=== PATIENT | female | born 1965 | race Caucasian/White ===

== ENCOUNTER 2018-04-07 12:34 | Emergency (ER) | payer OTHER ==
[2018-04-07 14:48] LABS: KETONE, URINE AUTO RFX NEGATIVE (NEGATIVE); LEUKOCYTE ESTERASE UR AUTO RFX NEGATIVE (NEGATIVE); MUCUS, URINE RFX SMALL (NEGATIVE); NITRITE, URINE AUTO RFX NEGATIVE (NEGATIVE); RBC, URINE AUTO RFX 0 /HPF (0-3); SPECIFIC GRAVITY UR AUTO RFX 1.018 (1.002-1.035); SQUAM EPITHELIAL CELL UR AURFX 1 /HPF (0-6); WBC, URINE AUTO RFX 0 /HPF (0-3)
[2018-04-07 14:52] LABS: BASO % 0.4 % (0.0-1.0); EOS # 0.1 10^3/uL (0.0-0.50); EOS % 1.2 % (0.0-3.0); HEMATOCRIT 44.1 % (36.0-47.0); HEMOGLOBIN 14.6 g/dl (12.0-15.5); IMMATURE GRANULOCYTE % 0.4 % (0-3.0); LYMPH # 3.1 10^3/uL (1.5-4.5); LYMPH % 27.6 % (24.0-44.0); MEAN CORPUSCULAR HEMOGLOBIN 29.4 pg (27.0-33.0); MEAN CORPUSCULAR HGB CONC 33.1 g/dl (32.0-36.5); MEAN CORPUSCULAR VOLUME 88.9 fl (80.0-96.0); MONO # 0.8 10^3/uL (0.0-0.8); MONO % 7.2 % (0.0-5.0); NEUTROPHILS # 7.2 10^3/uL (1.8-7.7); NEUTROPHILS % 63.2 % (36.0-66.0); PLATELET COUNT, AUTOMATED 232 10^3/uL (150-450); RED BLOOD COUNT 4.96 10^6/uL (4.00-5.40); RED CELL DISTRIBUTION WIDTH 13.5 % (11.5-14.5); WHITE BLOOD COUNT 11.3 10^3/uL (4.0-10.0)
[2018-04-07 15:21] LABS: ALBUMIN 3.6 GM/DL (3.2-5.2); ALBUMIN/GLOBULIN RATIO 0.88 (1.00-1.93); ALKALINE PHOSPHATASE 140 U/L (45-117); ALT/SGPT 33 U/L (12-78); ANION GAP 6 MEQ/L (8-16); AST/SGOT 24 U/L (7-37); BILIRUBIN,DIRECT < 0.1 MG/DL (0.0-0.2); BILIRUBIN,TOTAL 0.3 MG/DL (0.2-1.0); BLOOD UREA NITROGEN 17 MG/DL (7-18); CALCIUM LEVEL 9.2 MG/DL (8.5-10.1); CARBON DIOXIDE LEVEL 31 MEQ/L (21-32); CHLORIDE LEVEL 102 MEQ/L (98-107); CREATININE FOR GFR 0.75 MG/DL (0.55-1.30); GLOMERULAR FILTRATION RATE > 60.0 (>51); GLUCOSE, FASTING 93 MG/DL (70-100); LIPASE 149 U/L (73-393); POTASSIUM SERUM 3.9 MEQ/L (3.5-5.1); SODIUM LEVEL 139 MEQ/L (136-145); TOTAL PROTEIN 7.7 GM/DL (6.4-8.2)
[2018-04-07] MEDS: ONDANSETRON 4MG/2ML VIAL (J2405) IV (15:26)
[2018-04-07] MEDS: MORPHINE 4 MG/ML 1ML VIAL/SYRINGE (J2270) IV (15:33)
[2018-04-07] MEDS: NS 1,000 ML IV (15:33)
[2018-04-07] MEDS ORDERED: ISOVUE-370 76% 100ML VIAL (Q9967) As Ordered (15:36)
== END 2018-04-07 17:36 | disposition home or self-care (01) ==
LOC: M ED 12:34
DX: K57.32 Diverticulitis of large intestine without perforation or abscess without bleeding (principal); I10 Essential (primary) hypertension; K21.9 Gastro-esophageal reflux disease without esophagitis; F41.9 Anxiety disorder, unspecified; F32.9 Major depressive disorder, single episode, unspecified; Z72.0 Tobacco use; Z79.899 Other long term (current) drug therapy
CPT/HCPCS: J2270

== ENCOUNTER 2018-06-16 08:59 | Day surgery (SDC) | payer OTHER ==
[2018-06-16] MEDS: NS 1,000 ML IV (09:13)
[2018-06-16] MEDS ORDERED: MIDAZOLAM INJ 2 MG/2 ML VIAL (J2250) As Ordered (09:41)
[2018-06-16] MEDS ORDERED: PROPOFOL 200 MG/20 ML VIAL As Ordered (09:42)
[2018-06-16] MEDS ORDERED: LIDOCAINE 2% INJ 100 MG/5 ML SDV (FOR ANES.) As Ordered (09:42)
[2018-06-16] MEDS ORDERED: fentaNYL 100 MCG/2 ML INJECTION (J3010) As Ordered (09:44)
[2018-06-16] MEDS ORDERED: GLYCOPYRROLATE INJ 0.2 MG/ML 2 ML VIAL As Ordered (09:44)
== END 2018-06-16 10:50 | disposition home or self-care (01) ==
LOC: M OPP 08:59
DX: Z12.11 Encounter for screening for malignant neoplasm of colon (principal); K57.32 Diverticulitis of large intestine without perforation or abscess without bleeding; K58.9 Irritable bowel syndrome, unspecified; D12.4 Benign neoplasm of descending colon; D12.3 Benign neoplasm of transverse colon; K57.30 Diverticulosis of large intestine without perforation or abscess without bleeding; R10.84 Generalized abdominal pain; K44.9 Diaphragmatic hernia without obstruction or gangrene; I10 Essential (primary) hypertension; K21.9 Gastro-esophageal reflux disease without esophagitis; R12 Heartburn; F41.9 Anxiety disorder, unspecified; F32.9 Major depressive disorder, single episode, unspecified; E66.01 Morbid (severe) obesity due to excess calories; R06.02 Shortness of breath; R05 Cough; F17.210 Nicotine dependence, cigarettes, uncomplicated; Z79.899 Other long term (current) drug therapy
CPT/HCPCS: 45385

== ENCOUNTER → 2018-07-11 | Outpatient (CLI) | payer OTHER ==
[2018-07-11 12:31] LABS: HEMATOCRIT 46.8 % (36.0-47.0); HEMOGLOBIN 15.5 g/dl (12.0-15.5); MEAN CORPUSCULAR HEMOGLOBIN 29.5 pg (27.0-33.0); MEAN CORPUSCULAR HGB CONC 33.1 g/dl (32.0-36.5); PLATELET COUNT, AUTOMATED 240 10^3/uL (150-450); RED BLOOD COUNT 5.26 10^6/uL (4.00-5.40); RED CELL DISTRIBUTION WIDTH 13.4 % (11.5-14.5); WHITE BLOOD COUNT 8.8 10^3/uL (4.0-10.0)
[2018-07-11 12:44] LABS: ALBUMIN 4.2 GM/DL (3.2-5.2); ALBUMIN/GLOBULIN RATIO 1.05 (1.00-1.93); ALKALINE PHOSPHATASE 142 U/L (45-117); ALT/SGPT 30 U/L (12-78); ANION GAP 7 MEQ/L (8-16); AST/SGOT 20 U/L (7-37); BILIRUBIN,TOTAL 0.6 MG/DL (0.2-1.0); BLOOD UREA NITROGEN 14 MG/DL (7-18); CALCIUM LEVEL 9.4 MG/DL (8.5-10.1); CARBON DIOXIDE LEVEL 32 MEQ/L (21-32); CHLORIDE LEVEL 99 MEQ/L (98-107); CREATININE FOR GFR 0.76 MG/DL (0.55-1.30); GLOMERULAR FILTRATION RATE > 60.0 (>51); GLUCOSE, FASTING 98 MG/DL (70-100); SODIUM LEVEL 138 MEQ/L (136-145); TOTAL PROTEIN 8.2 GM/DL (6.4-8.2)
== END ==
LOC: M LAB 11:27
DX: K58.0 Irritable bowel syndrome with diarrhea (principal); K57.32 Diverticulitis of large intestine without perforation or abscess without bleeding
CPT/HCPCS: 80053

== ENCOUNTER → 2018-07-20 | Outpatient (CLI) | payer OTHER ==
[~2018-07-20] MED LIST: GASTROGRAFIN SOLUTION 30ML (Q9963) As Ordered; ISOVUE-370 76% 100ML VIAL (Q9967) As Ordered
== END ==
LOC: M RAD 12:26
DX: K57.30 Diverticulosis of large intestine without perforation or abscess without bleeding (principal); R10.11 Right upper quadrant pain
CPT/HCPCS: Q9963

== ENCOUNTER 2018-08-30 10:08 | Inpatient (IN) | payer OTHER ==
--- NOTE | 2018-08-29 17:00 | HPE ---
DATE OF ADMISSION: 08/30/2018 CHIEF COMPLAINT: Recurrent diverticulitis. BRIEF HISTORY OF PRESENT ILLNESS: The patient is a 53-year-old female who has had multiple episodes of diverticulitis, initially diagnosed with CAT scans but also symptomatically has had some persistent problematic left lower quadrant suprapubic pain and has been quite problematic with some radiation of that pain all across her abdomen. She has been treated with antibiotics, had resolution of these types of pain, and now presents for definitive therapy of recurrent diverticulitis. She has not had any abscess drainage. She has had a colonoscopy which confirmed the sigmoid diverticulosis earlier this year. PAST MEDICAL HISTORY: Significant for: 1. History of diverticulitis. 2. History of hypertension. 3. History of reflux. 4. History of hiatal hernia. 5. Depression. 6. Hysterectomy. 7. Cholecystectomy. 8. Tubal ligation. MEDICATIONS: Include the following: Aleve, atenolol, bupropion, hydrochlorothiazide, meloxicam, Zofran, Protonix, and some as-needed oxycodone. PHYSICAL EXAMINATION: The patient is a 53-year-old female who looks stated age. HEENT is unremarkable. Neck: Supple without adenopathy. Lungs are clear to auscultation without crackles, wheezes or rhonchi. Heart is regular without murmur. Abdomen is soft, nondistended, mildly tender throughout the lower abdomen but some in the mid epigastric area as well. No significant guarding, rebound or peritoneal signs are appreciated. IMPRESSION AND PLAN: The patient has had recurrent episodes of diverticulitis. We have planned on a laparoscopic sigmoid colectomy with a coloproctostomy. She understands the risks as well as benefits associated with the operative intervention, those including but not limited to infection, bleeding, damage to surrounding structures, including bowel, bladder, nerves, vessels, kidney, ureter, pancreas, spleen and the possible need for open operative intervention as well as the possible need for a colostomy. The patient would like to proceed with this as scheduled. She will be receiving a mechanical as well as antibiotic bowel preparation. She will receive IV antibiotics preoperatively. She will have thromboembolic-deterrent stockings (TEDS), sequentials, Jurado catheter intraoperatively with a plan for postoperative hospitalization for typically 3-5 days.
[~2018-08-30] VITALS: Ht 167.6 cm; Wt 99.2 kg
[~2018-08-30 10:08] MED LIST changes: +ALEV220C2 PO; +ATENPOW PO; +BUPR1TAB53 PO; +CIPR-249 PO; +ERTAPENEM SODIUM 1 GM in NS 50 ML IV ONE; +FLAG500T PO; -GASTROGRAFIN SOLUTION 30ML (Q9963) As Ordered; +HYDR25TAB PO; +IBUPROPHEN PO; -ISOVUE-370 76% 100ML VIAL (Q9967) As Ordered; +LIDOCAINE 1% MDV 20ML VIAL SQ PRN; +LR 1,000 ML IV ONE; +ONDANSETRON PO; +PANTOPRAZOLE PO; +PERC5TAB12 PO; +SULFAMETHOXAZOLE PO; +VENTAER INH; +VICOBULK PO; +ZOFR4TAB14 PO
[2018-08-30] MEDS ORDERED: PROPOFOL 200 MG/20 ML VIAL As Ordered ONE (10:26)
[2018-08-30] MEDS ORDERED: dexameTHASONE 4 MG/ML 1ML VIAL (J1100) As Ordered ONE (10:27)
[2018-08-30] MEDS ORDERED: ROCURONIUM BROMIDE 50 MG/5 ML VIAL As Ordered ONE ×2 (10:27→14:23)
[2018-08-30] MEDS ORDERED: fentaNYL 250 MCG/5 ML INJECTION (J3010) As Ordered ONE (10:27)
[2018-08-30] MEDS ORDERED: ONDANSETRON 4MG/2ML VIAL (J2405) As Ordered ONE ×2 (10:27→14:23)
[2018-08-30] MEDS ORDERED: LIDOCAINE 2% INJ 100 MG/5 ML SDV (FOR ANES.) As Ordered ONE (10:27)
[2018-08-30] MEDS ORDERED: MIDAZOLAM INJ 2 MG/2 ML VIAL (J2250) As Ordered ONE ×2 (10:28→12:59)
[2018-08-30] MEDS ORDERED: SCOPOLAMINE 1MG TRANSDERMAL PATCH As Ordered ONE (11:59)
[2018-08-30] MEDS ORDERED: ALBUTEROL SULFATE 2.5 MG/0.5 ML INH NEB SOLN As Ordered ONE (12:00)
[2018-08-30] MEDS ORDERED: ALBUTEROL SULFATE 2.5 MG/0.5 ML INH NEB SOLN INH ONE (12:00)
[2018-08-30] MEDS ORDERED: SCOPOLAMINE 1MG TRANSDERMAL PATCH TOP ONE (12:45)
[2018-08-30] MEDS ORDERED: BUPIVACAINE/EPIN 0.25% 30 ML VIAL As Ordered ONE (12:48)
[2018-08-30] MEDS ORDERED: BUPIVACAINE LIPOSOME/PF 1.3% 20ML VIAL (13.3MG/ML)(EXPAREL)(C9290 PER1MG) As Ordered ONE (12:48)
[2018-08-30] MEDS ORDERED: GLUCAGON FOR INJ 1 MG VIAL (J1610) As Ordered ONE (12:48)
[2018-08-30] MEDS ORDERED: BUPIVACAINE HCL 0.25% 30 ML VIAL As Ordered ONE (12:48)
[2018-08-30] MEDS ORDERED: HYDROmorphone HCL 2 MG/ML 1ML VIAL (J1170) As Ordered ONE (14:07)
[2018-08-30] MEDS ORDERED: SUGAMMADEX SODIUM 500 MG/5 ML VIAL (BRIDION) As Ordered ONE (14:21)
[2018-08-30] MEDS ORDERED: SUCCINYLCHOLINE 100 MG/5 ML SYRINGE (J0330) As Ordered ONE (16:07)
[2018-08-30] MEDS ORDERED: NS 1,000 ML IV SCH (16:08)
[2018-08-30] MEDS ORDERED: NALBUPHINE HCL 10 MG/ML AMP (J2300) IV PRN (16:15)
[2018-08-30] MEDS ORDERED: EPIDURAL/PCA KEYS XX PRN (16:15)
[2018-08-30] MEDS ORDERED: IPRATROPIUM 0.5MG/ALBUTEROL 2.5MG INH SOL UD 3ML (DUONEB)(J7620) NEB PRN (16:15)
[2018-08-30] MEDS ORDERED: diphenhydrAMINE INJ 50MG/ML VIAL (J1200) IV PRN (16:15)
[2018-08-30] MEDS ORDERED: PROMETHAZINE INJ 25 MG/ML VIAL (J2550) IV PRN (16:15)
[2018-08-30] MEDS ORDERED: NALOXONE INJ 0.4 MG/1 ML VIAL (J2310) IV PRN (16:15)
[2018-08-30] MEDS ORDERED: MORPHINE 1MG/ML IN 0.9% NACL 100ML IV BAG IV PRN (16:15)
[2018-08-30] MEDS ORDERED: ONDANSETRON 4MG/2ML VIAL (J2405) IV PRN ×3 (16:15→16:30)
[2018-08-30] MEDS ORDERED: METOCLOPRAMIDE INJ 10MG/2ML VIAL (J2765) IV PRN (16:15)
[2018-08-30] MEDS ORDERED: LR 1,000 ML IV SCH (16:30)
[2018-08-30] MEDS ORDERED: HYDROMORPHONE HCL 0.5 MG/ 0.5 ML SYRINGE (J1170 PER 1) IV PRN (16:30)
[2018-08-30] MEDS ORDERED: PERCOCET 5MG/325MG TAB PO PRN (16:30)
[2018-08-30] MEDS ORDERED: fentaNYL 100 MCG/2 ML INJECTION (J3010) IV PRN (16:30)
[2018-08-30] MEDS: NS 1,000 ML IV SCH (17:14)
[2018-08-30 18:15] VITALS: BP 117/71
[2018-08-30 18:45] VITALS: BP 117/69
[2018-08-30] MEDS: IPRATROPIUM 0.5MG/ALBUTEROL 2.5MG INH SOL UD 3ML (DUONEB)(J7620) NEB SCH (20:24)
[2018-08-30 20:45] VITALS: BP 113/62
[2018-08-30] MEDS: ALVIMOPAN 12 MG CAPSULE (ENTEREG) PO SCH (21:28)
[2018-08-30] MEDS: KETOROLAC 30 MG/ML VIAL (J1885) IV SCH (21:28)
[2018-08-30] MEDS: PANTOPRAZOLE 40MG INJ (PROTONIX) (C9113) IV SCH (21:28)
[2018-08-30 21:45] VITALS: BP 112/66
[2018-08-30 22:45] VITALS: BP 110/64
[2018-08-31] MEDS: NS 1,000 ML IV SCH ×3 (00:08→17:41)
[2018-08-31 02:00] VITALS: BP 108/62
[2018-08-31] MEDS: IPRATROPIUM 0.5MG/ALBUTEROL 2.5MG INH SOL UD 3ML (DUONEB)(J7620) NEB SCH ×4 (02:00→20:00)
[2018-08-31] MEDS: KETOROLAC 30 MG/ML VIAL (J1885) IV SCH ×4 (04:44→21:39)
[2018-08-31 06:00] VITALS: BP 99/58
[2018-08-31 06:23] LABS: HEMATOCRIT 39.8 % (36.0-47.0); HEMOGLOBIN 13.2 g/dl (12.0-15.5); MEAN CORPUSCULAR HEMOGLOBIN 28.7 pg (27.0-33.0); MEAN CORPUSCULAR HGB CONC 33.2 g/dl (32.0-36.5); MEAN CORPUSCULAR VOLUME 86.5 fl (80.0-96.0); PLATELET COUNT, AUTOMATED 227 10^3/uL (150-450); WHITE BLOOD COUNT 12.8 10^3/uL (4.0-10.0)
[2018-08-31 06:36] LABS: BLOOD UREA NITROGEN 12 MG/DL (7-18); CALCIUM LEVEL 7.7 MG/DL (8.5-10.1); CARBON DIOXIDE LEVEL 31 MEQ/L (21-32); CHLORIDE LEVEL 103 MEQ/L (98-107); CREATININE FOR GFR 0.78 MG/DL (0.55-1.30); GLOMERULAR FILTRATION RATE > 60.0 (>51); GLUCOSE, FASTING 94 MG/DL (70-100); SODIUM LEVEL 137 MEQ/L (136-145)
[2018-08-31] MEDS: PANTOPRAZOLE 40MG INJ (PROTONIX) (C9113) IV SCH ×2 (09:29→21:38)
[2018-08-31] MEDS: ALVIMOPAN 12 MG CAPSULE (ENTEREG) PO SCH ×2 (09:29→21:38)
[2018-08-31] MEDS: buPROPion **SR TABLET** (ZYBAN) 150MG PO SCH (09:29)
[2018-08-31 10:00] VITALS: BP 124/58
[2018-08-31 14:00] VITALS: BP 105/53
[2018-08-31] MEDS: ERTAPENEM SODIUM 1 GM in NS MINI-BAG PLUS 50 ML IV SCH (15:51)
[2018-08-31 18:00] VITALS: BP 101/58
[2018-08-31 22:00] VITALS: BP 110/58
[2018-08-31] MEDS: NICOTINE 21MG/24HR 1 EA TRANSDERMAL TD SCH (22:03)
[2018-09-01] MEDS: NS 1,000 ML IV SCH ×3 (00:08→17:02)
[2018-09-01 02:00] VITALS: BP 115/59
[2018-09-01] MEDS: IPRATROPIUM 0.5MG/ALBUTEROL 2.5MG INH SOL UD 3ML (DUONEB)(J7620) NEB SCH ×4 (02:00→21:49)
[2018-09-01] MEDS: KETOROLAC 30 MG/ML VIAL (J1885) IV SCH ×4 (04:00→21:26)
[2018-09-01 05:53] LABS: HEMATOCRIT 38.9 % (36.0-47.0); HEMOGLOBIN 12.4 g/dl (12.0-15.5); MEAN CORPUSCULAR HEMOGLOBIN 28.9 pg (27.0-33.0); MEAN CORPUSCULAR HGB CONC 31.9 g/dl (32.0-36.5); MEAN CORPUSCULAR VOLUME 90.7 fl (80.0-96.0); PLATELET COUNT, AUTOMATED 198 10^3/uL (150-450); RED BLOOD COUNT 4.29 10^6/uL (4.00-5.40)
[2018-09-01 06:00] VITALS: BP 123/69
[2018-09-01 06:17] LABS: BLOOD UREA NITROGEN 11 MG/DL (7-18); CALCIUM LEVEL 7.7 MG/DL (8.5-10.1); CARBON DIOXIDE LEVEL 30 MEQ/L (21-32); CHLORIDE LEVEL 107 MEQ/L (98-107); CREATININE FOR GFR 0.78 MG/DL (0.55-1.30); GLOMERULAR FILTRATION RATE > 60.0 (>51); GLUCOSE, FASTING 81 MG/DL (70-100); SODIUM LEVEL 141 MEQ/L (136-145)
[2018-09-01] MEDS: PANTOPRAZOLE 40MG INJ (PROTONIX) (C9113) IV SCH ×2 (08:57→21:26)
[2018-09-01 09:00] VITALS: BP 121/64
[2018-09-01] MEDS: ALVIMOPAN 12 MG CAPSULE (ENTEREG) PO SCH ×2 (10:08→21:26)
[2018-09-01] MEDS: buPROPion **SR TABLET** (ZYBAN) 150MG PO SCH (10:08)
[2018-09-01] MEDS: NICOTINE 21MG/24HR 1 EA TRANSDERMAL TD SCH (10:27)
[2018-09-01 12:00] VITALS: BP 116/60
--- NOTE | 2018-09-01 12:27 | IPN ---
DATE: 08/31/2018 PROGRESS NOTE: Overall the patient has been doing well from a gastrointestinal (GI) issue. White count is a little bit elevated this morning, but otherwise no other significant abnormality is appreciated on her laboratory findings at this time. She has been afebrile. Her major complaint however is tenderness over the right lower quadrant 12 mm trocar site. Other than this, she seems to be doing relatively well. No complaints of shortness breath. No significant other abdominal pain. Mostly notices some spasm associated with this. On her physical exam, abdomen is soft, nontender, nondistended except for that right lower quadrant area where she has some discomfort and pain in that area. IMPRESSION/PLAN: The patient is postoperative day #1 from her laparoscopic sigmoid colectomy and overall seems to be making adequate progress. We will see how she does over the next 24 hours with her right lower quadrant pain. I have encouraged her to use pain medication as necessary as well as the Toradol, etc. She understands and we will see how she does and we will see how getting up, moving around makes a difference for her over the next 12-24 hours as well.
--- NOTE | 2018-09-01 12:33 | IPN ---
DATE: PROGRESS NOTE: The patient is postop day #2 from her laparoscopic sigmoid colectomy and overall her Sid-Solano drain has been draining some serosanguineous drainage. Her white count is normalized today, and overall, she has been not complaining of any other significant problems except for this right lower quadrant pain and discomfort at the trocar site. There is no significant hematoma over this area, and otherwise, on her physical exam the incisions are healing nicely without any erythema, drainage or discharge, but still has some point tenderness over this right lower quadrant site. IMPRESSION AND PLAN: 1. Patient has several issues, one from a gastrointestinal (GI) standpoint, will keep her nothing by mouth except for sips of clears, see how she does with this and tomorrow will probably start her on some clear liquids and then advance her diet slowly. 2. Jurado catheter. Will keep this in today but will plan on taking it out tomorrow once we get her mobilizing a little bit more. 3. Pain control. Obvious this seems a problem. We will get the anesthesiologist to see if we cannot do a TAP block as well as possibly put some Exparel in this area and I anticipate it is the stitches in the trocar site that are causing pulling discomfort in this area, and I anticipate this should start to resolve over the ensuing several days but right now it is making it so that she is not able to mobilize adequately. Thus, we will see if we can get her adequate pain control and wean her off the other pain medication.
[2018-09-01 14:00] VITALS: BP 127/72
[2018-09-01] MEDS: ERTAPENEM SODIUM 1 GM in NS MINI-BAG PLUS 50 ML IV SCH (14:09)
[2018-09-01] MEDS ORDERED: MORPHINE 4 MG/ML 1ML VIAL/SYRINGE (J2270) IV PRN (18:00)
[2018-09-01 22:00] VITALS: BP 119/57
[2018-09-02] MEDS: NS 1,000 ML IV SCH ×2 (00:08→08:13)
[2018-09-02 02:00] VITALS: BP 139/78
[2018-09-02] MEDS: IPRATROPIUM 0.5MG/ALBUTEROL 2.5MG INH SOL UD 3ML (DUONEB)(J7620) NEB SCH ×4 (02:00→20:00)
[2018-09-02] MEDS: KETOROLAC 30 MG/ML VIAL (J1885) IV SCH ×4 (03:50→21:43)
[2018-09-02 06:00] VITALS: BP 142/76
[2018-09-02 06:40] LABS: HEMATOCRIT 39.1 % (36.0-47.0); MEAN CORPUSCULAR HEMOGLOBIN 28.7 pg (27.0-33.0); MEAN CORPUSCULAR HGB CONC 33.2 g/dl (32.0-36.5); MEAN CORPUSCULAR VOLUME 86.3 fl (80.0-96.0); PLATELET COUNT, AUTOMATED 211 10^3/uL (150-450); RED BLOOD COUNT 4.53 10^6/uL (4.00-5.40)
[2018-09-02 07:04] LABS: BLOOD UREA NITROGEN 5 MG/DL (7-18); CALCIUM LEVEL 7.9 MG/DL (8.5-10.1); CARBON DIOXIDE LEVEL 26 MEQ/L (21-32); CHLORIDE LEVEL 106 MEQ/L (98-107); CREATININE FOR GFR 0.53 MG/DL (0.55-1.30); GLOMERULAR FILTRATION RATE > 60.0 (>51); GLUCOSE, FASTING 95 MG/DL (70-100); POTASSIUM SERUM 3.2 MEQ/L (3.5-5.1); SODIUM LEVEL 138 MEQ/L (136-145)
[2018-09-02 08:50] VITALS: BP 140/78
[2018-09-02] MEDS: NICOTINE 21MG/24HR 1 EA TRANSDERMAL TD SCH (09:00)
[2018-09-02] MEDS: PANTOPRAZOLE 40MG INJ (PROTONIX) (C9113) IV SCH ×2 (09:34→21:43)
[2018-09-02] MEDS: ALVIMOPAN 12 MG CAPSULE (ENTEREG) PO SCH ×2 (09:36→21:42)
[2018-09-02] MEDS: buPROPion **SR TABLET** (ZYBAN) 150MG PO SCH (09:36)
[2018-09-02 10:00] VITALS: BP 118/64
[2018-09-02] MEDS ORDERED: PERCOCET 5MG/325MG TAB PO PRN ×2 (10:00)
[2018-09-02 14:10] VITALS: BP 111/58
[2018-09-02 22:00] VITALS: BP 118/71
[2018-09-03 02:00] VITALS: BP 112/61
[2018-09-03] MEDS: IPRATROPIUM 0.5MG/ALBUTEROL 2.5MG INH SOL UD 3ML (DUONEB)(J7620) NEB SCH ×2 (02:00→07:16)
[2018-09-03] MEDS: KETOROLAC 30 MG/ML VIAL (J1885) IV SCH ×2 (04:56→10:00)
[2018-09-03 06:00] VITALS: BP 119/62
[2018-09-03 06:05] LABS: HEMATOCRIT 37.4 % (36.0-47.0); HEMOGLOBIN 12.7 g/dl (12.0-15.5); MEAN CORPUSCULAR VOLUME 85.4 fl (80.0-96.0); PLATELET COUNT, AUTOMATED 208 10^3/uL (150-450); RED BLOOD COUNT 4.38 10^6/uL (4.00-5.40); WHITE BLOOD COUNT 6.8 10^3/uL (4.0-10.0)
[2018-09-03 06:25] LABS: BLOOD UREA NITROGEN 8 MG/DL (7-18); CALCIUM LEVEL 7.8 MG/DL (8.5-10.1); CARBON DIOXIDE LEVEL 27 MEQ/L (21-32); CHLORIDE LEVEL 107 MEQ/L (98-107); CREATININE FOR GFR 0.67 MG/DL (0.55-1.30); GLOMERULAR FILTRATION RATE > 60.0 (>51); GLUCOSE, FASTING 104 MG/DL (70-100); POTASSIUM SERUM 3.1 MEQ/L (3.5-5.1); SODIUM LEVEL 141 MEQ/L (136-145)
[2018-09-03] MEDS: NICOTINE 21MG/24HR 1 EA TRANSDERMAL TD SCH (09:00)
[2018-09-03] MEDS: PANTOPRAZOLE 40MG INJ (PROTONIX) (C9113) IV SCH (09:00)
[2018-09-03] MEDS: buPROPion **SR TABLET** (ZYBAN) 150MG PO SCH (09:58)
[2018-09-03] MEDS: ALVIMOPAN 12 MG CAPSULE (ENTEREG) PO SCH (09:58)
[2018-09-03 10:00] VITALS: BP 120/65
[2018-09-03] MEDS ORDERED: OXYC-517 PO (10:03)
[2018-09-03] MEDS ORDERED: NAPR-49 PO (10:03)
--- NOTE | 2018-09-14 15:20 | RO ---
DATE OF PROCEDURE: 08/30/2018 PREOPERATIVE DIAGNOSIS: History of multiple episodes of diverticulitis. POSTOPERATIVE DIAGNOSIS: History of multiple episodes of diverticulitis. PROCEDURE: Laparoscopic sigmoid colectomy with coloproctostomy and laparoscopic splenic flexure takedown. SURGEON: Evaristo Purcell MD [employer] DEVELOPER: Dr. Ponce who provided retraction, exposure, and assistance with the rectal anastomosis. ANESTHESIA: General endotracheal anesthesia ESTIMATED BLOOD LOSS: 50 mL FLUIDS: Crystalloid. PROCEDURE SUMMARY: The patient was taken operating room and was given general anesthesia. After adequate anesthesia and preoperative antibiotics were given, the patient was prepped and draped in the usual sterile fashion. Next, supraumbilical incision was made with skin knife. Blunt dissection was carried down to fascia. A Veress needle was placed into the abdominal cavity, insufflated to 15 mm pressure. A 10 mm trocar was placed at this time and under direct visualization two left-sided 5 mm trocars and then a right lower quadrant 12 mm, right upper quadrant 5 mm trocars were placed. Next, numerous adhesions of the sigmoid colon that was up against the anterior abdominal wall was taken down with harmonic scalpel. The patient had tense adhesions up in this area and eventually I was able to get this adequately mobilized. The white line of Toldt was mobilized and the descending colon down around the sigmoid colon down to the pelvic vessels, iliac vessels and down to the rectum itself. Once this was mobilized on both sides, the mesentery posteriorly and the rectosigmoid junction area was opened and a window was created behind the colon itself using some blunt dissection, as well as the harmonic scalpel. The bowel was transected using a NIDA Wilkinson 60 load. The vessels also were taken with an Wilkinson vascular load. However, this was performed after mobilizing the sigmoid much more and creating a window more proximal to the sigmoid vessels and distally as well. Once this was transected, the bowel moved quite nicely. However, it still seemed a little bit short to make it down into the pelvis for the anastomosis. Thus, the splenic flexure was mobilized, first by elevating the omentum that was adherent to the transverse colon. The transverse colon was mobilized in the avascular plane all the way around the splenic flexure, staying in the avascular plane, mobilizing this off the kidney on the left-hand side and then anteriorly off the kidney and mobilizing this so that it dropped down nicely into the pelvis. This was done with a combination of blunt dissection, as well as Harmonic scalpel throughout this area and eventually this was nicely mobilized. Once this was adequately mobilized, the colon was grasped and brought out through a midline incision and then a portion of the bowel resected. After placing an anvil in the proximal bowel. This was brought out through a staple line at the resected sigmoid area and returned to the abdominal cavity. The incision then was closed with a running Vicryl suture and the anastomosis was created with an EEA stapler. A Theo-Naomi was used to close the right lower quadrant incision and Sid-Solano drain was left in the bed of the dissection. Anastomosis was insufflated prior to closing all the wounds and revealed no air leak and air insufflation dilated up the colon proximal and the rectum distal to this quite nicely. All trocars were removed under direct visualization and ye were placed in the midline incision, right side and all trocar sites. Sid-Solano drain was sutured in with silk suture. The patient was awakened, extubated, brought to the recovery room awake, alert, hemodynamically stable. Sponge and needle counts correct times two.
== END 2018-09-03 12:00 | disposition home or self-care (01) | DRG 221 ==
LOC: M OR 10:08 → M MS5PR 17:50
PROVIDERS: ADMIT Surgery; ATTEND Surgery
PROC: 0DBN4ZZ Excision of Sigmoid Colon, Percutaneous Endoscopic Approach (ICD-10-PCS; principal; 2018-08-30 12:15)
DX: K57.32 Diverticulitis of large intestine without perforation or abscess without bleeding (principal); I10 Essential (primary) hypertension; K21.9 Gastro-esophageal reflux disease without esophagitis; K44.9 Diaphragmatic hernia without obstruction or gangrene; F32.9 Major depressive disorder, single episode, unspecified; Z90.49 Acquired absence of other specified parts of digestive tract; Z90.710 Acquired absence of both cervix and uterus

== ENCOUNTER → 2018-11-11 | Outpatient (CLI) | payer OTHER ==
[~2018-11-11] MED LIST changes: -ERTAPENEM SODIUM 1 GM in NS 50 ML IV ONE; +GASTROGRAFIN SOLUTION 30ML (Q9963) As Ordered ONE; +ISOVUE-370 76% 100ML VIAL (Q9967) As Ordered ONE; -LIDOCAINE 1% MDV 20ML VIAL SQ PRN; -LR 1,000 ML IV ONE; +NAPR-50 PO; +OXYC-517 PO
--- NOTE | 2018-11-11 15:04 | REP ---
CT of the abdomen pelvis without and with IV contrast and with bowel contrast in a patient with known diverticulosis. Comparison is 07/20/2018. The visualized lung enriquez are unremarkable. The hepatic parenchyma is diffusely less dense than the spleen compatible with hepato steatosis. There are surgical clips in the gallbladder fossa. This is unchanged. The pancreas and spleen are normal size and unremarkable. The adrenals, kidneys and abdominal aorta are normal. There is no retroperitoneal adenopathy or mass. There is no bowel distension or obstruction. Pelvis: There appears to be a circumferential surgical anastomotic suture line in the sigmoid colon on the study today as an interval change. There are scattered diverticula in the distal descending colon and remaining sigmoid colon. There is no CT evidence of acute diverticulitis. There is wall thickening of the cecum and proximal ascending colon, nonspecific, but could represent colitis in the appropriate clinical setting. There is no ascites or adenopathy. The bladder is unremarkable. Impression: Findings are compatible with interim sigmoid colon resection. There are a few remaining diverticula in the descending colon and the remaining sigmoid colon. There is no CT evidence of acute diverticulitis. There is no ascites or adenopathy. Hepato steatosis. There is wall thickening of the cecum and proximal ascending colon, nonspecific. This could represent colitis in the appropriate clinical setting. This is a change from the prior study. Electronically Signed by Guanakito Berman MD 11/11/2018 02:55 P
== END ==
LOC: M RAD 11:19
PROVIDERS: ATTEND Surgery
DX: K57.32 Diverticulitis of large intestine without perforation or abscess without bleeding (principal); K76.89 Other specified diseases of liver; K63.89 Other specified diseases of intestine; R10.84 Generalized abdominal pain
CPT/HCPCS: 74178; Q9963; Q9967

== ENCOUNTER 2019-01-05 17:45 | Emergency (ER) | payer OTHER ==
[~2019-01-05] VITALS: Ht 167.6 cm; Wt 101.4 kg
[~2019-01-05 17:45] MED LIST changes: -GASTROGRAFIN SOLUTION 30ML (Q9963) As Ordered ONE; -ISOVUE-370 76% 100ML VIAL (Q9967) As Ordered ONE; -NAPR-50 PO; +NAPR-837 PO
[2019-01-05] MEDS ORDERED: METF500T4 (17:57)
[2019-01-05] MEDS ORDERED: KETOROLAC 30 MG/ML VIAL (J1885) IV ONE (18:30)
[2019-01-05] MEDS ORDERED: NS 1,000 ML IV ONE (18:30)
[2019-01-05 19:57] LABS: BASO # 0.1 10^3/uL (0.0-0.2); BASO % 0.5 % (0.0-1.0); EOS # 0.1 10^3/uL (0.0-0.50); EOS % 1.4 % (0.0-3.0); HEMATOCRIT 43.5 % (36.0-47.0); HEMOGLOBIN 14.7 g/dl (12.0-15.5); LYMPH # 4.2 10^3/uL (1.5-4.5); LYMPH % 46.2 % (24.0-44.0); MEAN CORPUSCULAR HEMOGLOBIN 29.3 pg (27.0-33.0); MEAN CORPUSCULAR HGB CONC 33.8 g/dl (32.0-36.5); MEAN CORPUSCULAR VOLUME 86.8 fl (80.0-96.0); MONO # 0.8 10^3/uL (0.0-0.8); MONO % 8.3 % (0.0-5.0); NEUTROPHILS % 43.5 % (36.0-66.0); PLATELET COUNT, AUTOMATED 265 10^3/uL (150-450); RED BLOOD COUNT 5.01 10^6/uL (4.00-5.40); WHITE BLOOD COUNT 9.1 10^3/uL (4.0-10.0)
[2019-01-05 20:28] LABS: ALBUMIN 4.1 GM/DL (3.2-5.2); ALT/SGPT 35 U/L (12-78); AMYLASE 33 U/L (25-115); BILIRUBIN,DIRECT 0.1 MG/DL (0.0-0.2); BILIRUBIN,TOTAL 0.5 MG/DL (0.2-1.0); BLOOD UREA NITROGEN 14 MG/DL (7-18); CALCIUM LEVEL 9.2 MG/DL (8.5-10.1); CARBON DIOXIDE LEVEL 27 MEQ/L (21-32); CHLORIDE LEVEL 102 MEQ/L (98-107); CREATININE FOR GFR 0.72 MG/DL (0.55-1.30); GLOMERULAR FILTRATION RATE > 60.0 (>51); GLUCOSE, FASTING 80 MG/DL (70-100); LIPASE 110 U/L (73-393); POTASSIUM SERUM 3.5 MEQ/L (3.5-5.1); SODIUM LEVEL 136 MEQ/L (136-145); TOTAL PROTEIN 7.7 GM/DL (6.4-8.2)
[2019-01-05] MEDS ORDERED: ISOVUE-370 76% 100ML VIAL (Q9967) As Ordered ONE (20:30)
--- NOTE | 2019-01-05 21:26 | REPVR ---
EXAM: CT Abdomen and Pelvis With Contrast EXAM DATE/TIME: 01/05/2019 8:34 PM CLINICAL HISTORY: 53 years old, female; Abdominal pain; Other: Rlq; Additional info: Rlq pain; Nausea; Diarrhea TECHNIQUE: Imaging protocol: Axial computed tomography images of the abdomen and pelvis with intravenous contrast. Coronal and sagittal reformatted images were created and reviewed. Radiation optimization: All CT scans at this facility use at least one of these dose optimization techniques: automated exposure control; mA and/or kV adjustment per patient size (includes targeted exams where dose is matched to clinical indication); or iterative reconstruction. Contrast material: ISOVUE 370; Contrast volume: 100 ml; Contrast route: IV; COMPARISON: CT ABD PELVIS W/O FOL BY WIT 11/11/2018 1:06 PM FINDINGS: ABDOMEN: Liver: There is fatty infiltration of the liver. Gallbladder and bile ducts: Status post cholecystectomy. Pancreas: Normal. No ductal dilation. Spleen: Normal. No splenomegaly. Adrenals: Normal. No mass. Kidneys and ureters: Normal. No hydronephrosis. Stomach and bowel: There is colonic diverticulosis without evidence of diverticulitis. Partial sigmoid resection with mid sigmoid anastomosis. Appendix: A normal retrocecal appendix is seen. PELVIS: Bladder: Unremarkable as visualized. Reproductive: Status post hysterectomy. ABDOMEN and PELVIS: Intraperitoneal space: Normal. No free air. No significant fluid collection. Bones/joints: No acute fracture. No dislocation. Soft tissues: Unremarkable. Vasculature: Normal. No abdominal aortic aneurysm. Lymph nodes: Right lower lobe subpleural density measuring 3 x 5 mm is probably a lymph node and is unchanged 11/11/2018. IMPRESSION: 1. Right lower lobe subpleural density measuring 3 x 5 mm, unchanged from 11/11/2018. For patients at low risk (minimal or absent history of smoking and of other known risk factors), no routine follow-up is indicated. For patients at high risk (history of smoking or of other known risk factors), consider optional CT at 12 months. (Reji et al., Fleischner Society, 2017). 2. There has been prior cholecystectomy and hysterectomy. 3. Status post partial sigmoid resection with distal sigmoid anastomosis. 4. Colonic diverticulosis without diverticulitis. 5. Fatty infiltration of the liver. 6. Otherwise negative CT abdomen/pelvis. A normal appendix is seen. Electronically signed by: Victor M Gregory On 01/05/2019 21:26:43 PM
[2019-01-05 21:45] VITALS: BP 125/67
--- NOTE | 2019-01-06 16:05 | ED PDOC ---
Post-Departure Follow-Up herve fernandes faxed formal eport of ct abd/p for fu Shanti Sheehan MD Jan 06, 2019 16:05
== END 2019-01-05 22:09 | disposition home or self-care (01) ==
LOC: M ED 17:45
DX: R10.31 Right lower quadrant pain (principal); R19.7 Diarrhea, unspecified; I10 Essential (primary) hypertension; J45.909 Unspecified asthma, uncomplicated; K21.9 Gastro-esophageal reflux disease without esophagitis; F33.9 Major depressive disorder, recurrent, unspecified; F41.9 Anxiety disorder, unspecified; K58.9 Irritable bowel syndrome, unspecified; G43.909 Migraine, unspecified, not intractable, without status migrainosus; K44.9 Diaphragmatic hernia without obstruction or gangrene; Z87.19 Personal history of other diseases of the digestive system; Z87.440 Personal history of urinary (tract) infections; Z79.899 Other long term (current) drug therapy; Z88.8 Allergy status to other drugs, medicaments and biological substances
CPT/HCPCS: 36415; 74177; 80048; 80076; 81001; 82150; 83605; 83690; 85025; 87040; 96361; 96374; 99284; J1885; Q9967

== ENCOUNTER → 2021-05-09 | Outpatient (CLI) | payer OTHER ==
[~2021-05-09] MED LIST changes: +ALBU83IN; +DIPH2.5T14; +FLUT1INH3; +GABA-1171 PO; +HYDR-3490 PO; -HYDR25TAB PO; +LISI10TA15; +METF-838; +PANT40TA29; +PREG25CA2 PO
== END ==
LOC: M LABSMTC 10:59
PROVIDERS: ATTEND Anesthesiology
DX: Z11.52 Encounter for screening for COVID-19 (principal)

== ENCOUNTER 2021-05-14 09:10 | Day surgery (SDC) | payer OTHER ==
[~2021-05-14] VITALS: Ht 167.6 cm; Wt 93.4 kg
[~2021-05-14 09:10] MED LIST changes: +NS 1,000 ML IV ONE
[2021-05-14] MEDS ORDERED: propofoL 200 MG/20 ML VIAL As Ordered ONE (09:47)
--- NOTE | 2021-05-14 10:03 | ROOR ---
Patient Name: Bryanna Machado Procedure Date: 05/14/2021 9:35 AM Date of : 1965 Age: 55 Room: [facility] Gender: Female Note Status: Finalized Procedure: Colonoscopy Indications: Chronic diarrhea Providers: Evaristo Purcell Jr, MD Referring MD: Errol Moulton DO Requesting Provider: Medicines: Propofol per Anesthesia Complications: No immediate complications. Procedure: Pre-Anesthesia Assessment: - Prior to the procedure, a History and Physical was performed, and patient medications and allergies were reviewed. The patient is competent. The risks and benefits of the procedure and the sedation options and risks were discussed with the patient. All questions were answered and informed consent was obtained. Patient identification and proposed procedure were verified by the physician and the nurse in the pre-procedure area and in the procedure room. Mental Status Examination: alert and oriented. Airway Examination: normal oropharyngeal airway and neck mobility. Respiratory Examination: clear to auscultation. CV Examination: normal. ASA Grade Assessment: II - A patient with mild systemic disease. After reviewing the risks and benefits, the patient was deemed in satisfactory condition to undergo the procedure. The anesthesia plan was to use moderate sedation / analgesia (conscious sedation). Immediately prior to administration of medications, the patient was re-assessed for adequacy to receive sedatives. The heart rate, respiratory rate, oxygen saturations, blood pressure, adequacy of pulmonary ventilation, and response to care were monitored throughout the procedure. The physical status of the patient was re-assessed after the procedure. The Colonoscope was introduced through the anus and advanced to the cecum, identified by appendiceal orifice and ileocecal valve. The colonoscopy was performed without difficulty. The patient tolerated the procedure well. The quality of the bowel preparation was adequate. Findings: The distal ileum appeared normal. Biopsies were taken with a cold forceps for histology. The rectum, recto-sigmoid colon, descending colon, transverse colon, ascending colon, cecum, appendiceal orifice, ileocecal valve and anastomosis appeared normal. Biopsies for histology were taken with a cold forceps from the cecum, ascending colon, transverse colon, descending colon and rectum for evaluation of microscopic colitis. Impression: - The examined portion of the ileum was normal. Biopsied. - The rectum, recto-sigmoid colon, descending colon, transverse colon, ascending colon, cecum, appendiceal orifice, ileocecal valve and colonic anastomosis are normal. Biopsied. Recommendation: - Discharge patient to home (ambulatory). - Repeat colonoscopy in 5-10 years for screening purposes. Procedure Code(s): --- Professional --- 96695, Colonoscopy, flexible; with biopsy, single or multiple Diagnosis Code(s): --- Professional --- K52.9, Noninfective gastroenteritis and colitis, unspecified CPT copyright 2019 [employer]. All rights reserved. The codes documented in this report are preliminary and upon mother superior review may be revised to meet current compliance requirements. Evaristo Purcell MD Evaristo Purcell Jr, MD 05/14/2021 10:02:53 AM Electronically signed by Evaristo Purcell Jr, MD Number of Addenda: 0 Note Initiated On: 05/14/2021 9:35 AM Estimated Blood Loss: Estimated blood loss: none.
[2021-05-14 10:22] VITALS: BP 107/59
== END 2021-05-14 10:24 | disposition home or self-care (01) ==
LOC: M OPP 09:10
PROVIDERS: ATTEND Surgery
DX: K52.9 Noninfective gastroenteritis and colitis, unspecified (principal); Z79.84 Long term (current) use of oral hypoglycemic drugs; Z79.899 Other long term (current) drug therapy; Z88.5 Allergy status to narcotic agent; F17.210 Nicotine dependence, cigarettes, uncomplicated

== ENCOUNTER → 2021-05-28 | Outpatient (REF) ==
[~2021-05-28] MED LIST changes: -NS 1,000 ML IV ONE
--- NOTE | 2021-05-28 13:29 | REP ---
INDICATION: BACK PAIN. COMPARISON: CT 01/05/2019. TECHNIQUE: Three views lumbosacral spine. FINDINGS: There is no compression fracture. There is normal lumbar lordosis and alignment. Tiny spurs are noted of L4 and L5. The disc spaces are well preserved. There is sclerosis and spurring at the posterior facet joints of L4-5 and L5-S1. The posterior elements are intact. Scattered metallic clips are seen in the abdomen and pelvis. IMPRESSION: Mild degenerative changes. No compression deformity. <Electronically signed by Guanakito Gross > 05/28/21 [id number]
== END ==
LOC: M PLAIMG 12:05
PROVIDERS: ATTEND Internal Medicine
DX: M54.5 Low back pain (principal)

== ENCOUNTER 2022-03-23 10:06 | Emergency (ER) | payer OTHER ==
[~2022-03-23] VITALS: Ht 167.6 cm; Wt 100.3 kg
[~2022-03-23 10:06] MED LIST changes: +ALBU2.5V10; -ALBU83IN; -LISI10TA15; +LISI10TA24
[2022-03-23 10:07] VITALS: BP 136/67
[2022-03-23] MEDS ORDERED: ATOR40TA75 (10:26)
== END 2022-03-23 12:10 | disposition home or self-care (01) ==
LOC: M ED 10:06
DX: M79.661 Pain in right lower leg (principal); B34.8 Other viral infections of unspecified site; I10 Essential (primary) hypertension; J44.9 Chronic obstructive pulmonary disease, unspecified; J45.909 Unspecified asthma, uncomplicated; F33.9 Major depressive disorder, recurrent, unspecified; F41.9 Anxiety disorder, unspecified; G43.909 Migraine, unspecified, not intractable, without status migrainosus; K44.9 Diaphragmatic hernia without obstruction or gangrene; Z79.899 Other long term (current) drug therapy; Z79.84 Long term (current) use of oral hypoglycemic drugs; Z88.8 Allergy status to other drugs, medicaments and biological substances

== ENCOUNTER 2024-01-10 08:53 | Emergency (ER) | payer OTHER ==
[~2024-01-10] VITALS: Ht 167.6 cm; Wt 95.5 kg
[~2024-01-10 08:53] MED LIST changes: +ATOR40TA75; +DIPH1TAB80; -DIPH2.5T14; -PREG25CA2 PO; +PREG25CA3 PO
[2024-01-10 11:20] LABS: BASO % 0.3 % (0.0-1.0); EOS # 0.1 10^3/uL (0.0-0.5); EOS % 1.9 % (0.0-3.0); HEMATOCRIT 48.1 % (36.0-47.0); HEMOGLOBIN 16.1 g/dl (12.0-15.5); LYMPH # 1.2 10^3/uL (1.5-5.0); MEAN CORPUSCULAR HEMOGLOBIN 28.6 pg (27.0-33.0); MEAN CORPUSCULAR HGB CONC 33.5 g/dl (32.0-36.5); MEAN CORPUSCULAR VOLUME 85.4 fl (80.0-96.0); MONO # 0.9 10^3/uL (0.0-0.8); MONO % 14.4 % (2.0-8.0); NEUTROPHILS # 4.2 10^3/uL (1.5-8.5); NEUTROPHILS % 65.2 % (36.0-66.0); PLATELET COUNT, AUTOMATED 213 10^3/uL (150-450); RED BLOOD COUNT 5.63 10^6/uL (4.00-5.40); WHITE BLOOD COUNT 6.4 10^3/uL (4.0-10.0)
[2024-01-10 11:44] LABS: LIPASE 34 U/L (12-53)
[2024-01-10 11:46] LABS: ALBUMIN 3.9 G/DL (3.2-5.2); ALKALINE PHOSPHATASE 187 U/L (46-116); ALT/SGPT 95 U/L (7.0-40); AST/SGOT 74 U/L (<34); BILIRUBIN,DIRECT 0.2 MG/DL (<0.4); BILIRUBIN,TOTAL 0.5 MG/DL (0.3-1.2); TOTAL PROTEIN 7.6 G/DL (5.7-8.2)
[2024-01-10] MEDS ORDERED: ISOVUE-370 76% 100ML VIAL As Ordered ONE (12:08)
[2024-01-10 12:32] VITALS: BP 123/58; TEMP 97.9; O2SAT 98
[2024-01-10] MEDS: ONDANSETRON 4MG 2ML VIAL IV ONE (12:45)
[2024-01-10] MEDS: NS 1,000 ML IV ONE ×2 (12:46→14:10)
[2024-01-10] MEDS: DICYCLOMINE 10 MG CAP PO ONE (12:48)
[2024-01-10] MEDS ORDERED: ONDA4TAB6 PO (15:09)
[2024-01-10] MEDS ORDERED: DICY-61 PO (15:09)
[2024-01-10 15:49] LABS: HEPATITIS B CORE ANTIBODY IGM NEGATIVE (NEGATIVE)
[2024-01-10 15:50] LABS: HEPATITIS C VIRUS ABY INDEX < 0.02 INDEX (<0.8)
== END 2024-01-10 15:27 | disposition home or self-care (01) ==
LOC: M ED 08:53 → EDBD 08:53 → M ED 15:27
DX: R19.7 Diarrhea, unspecified (principal); A04.0 Enteropathogenic Escherichia coli infection; B34.8 Other viral infections of unspecified site; E11.9 Type 2 diabetes mellitus without complications; I10 Essential (primary) hypertension; K21.9 Gastro-esophageal reflux disease without esophagitis; J44.9 Chronic obstructive pulmonary disease, unspecified; F17.200 Nicotine dependence, unspecified, uncomplicated; Z79.899 Other long term (current) drug therapy; Z88.6 Allergy status to analgesic agent
CPT/HCPCS: 74177; 80047; 80074; 80076; 83690; 85025; 87507; 96361; 96374; 99284; J2405; Q9967